=== PATIENT | male | born 1985 | race Caucasian/White ===

== ENCOUNTER 2017-06-24 09:22 | Emergency (ER) | payer MEDICAID ==
[2017-06-24] MEDS: IBUPROFEN 800 MG TAB PO (11:24)
[2017-06-24] MEDS: ACETAMINOPHEN 500 MG TAB PO (11:24)
[2017-06-24] MEDS: SOD CHLORIDE 0.9% 1,000 ML IV (12:59)
== END 2017-06-24 14:12 | disposition home or self-care (01) ==
LOC: FTE 09:22
DX: R51 Headache (principal); J02.9 Acute pharyngitis, unspecified; R05 Cough; M54.9 Dorsalgia, unspecified; R00.0 Tachycardia, unspecified
CPT/HCPCS: 99284-25; J7030

== ENCOUNTER 2018-07-19 08:06 | Emergency (ER) | payer MEDICAID ==
[2018-07-19] MEDS: HYDROCODONE/APAP (5/325) TAB PO (08:33)
[2018-07-19] MEDS: DIPHTH/TET/ACEL PERTUSS (ADULT) 0.5 ML VIAL IM* (08:33)
[2018-07-19] MEDS: LIDOCAINE 1% (MDV) 10 ML INJ INJ (08:39)
[2018-07-19] MEDS: LIDOCAINE 1% (MDV) 20 ML INJ INJ (08:39)
[2018-07-19] MEDS: CEFAZOLIN 2 GM/50 ML (PMX) 50 ML IVPB (09:43)
== END 2018-07-19 11:53 | disposition home or self-care (01) ==
LOC: FTE 08:06
DX: S62.633B Displaced fracture of distal phalanx of left middle finger, initial encounter for open fracture (principal); S61.313A Laceration without foreign body of left middle finger with damage to nail, initial encounter; W27.0XXA Contact with workbench tool, initial encounter; Y92.9 Unspecified place or not applicable; Z23 Encounter for immunization
CPT/HCPCS: 11760; 73140; 90471; 90715; 96374; 99284-25